=== PATIENT | female | born 1995 | race Two or more races ===

== ENCOUNTER 2017-01-14 08:28 | Emergency (ER) | payer BC ==
[2017-01-14 09:01] LABS: INFLUENZA A NEG (NEG); INFLUENZA B NEG (NEG)
== END 2017-01-14 09:50 | disposition home or self-care (01) ==
LOC: CED 08:28
PROVIDERS: Physician Assistant Medical
DX: J06.9 Acute upper respiratory infection, unspecified (principal)
CPT/HCPCS: 87804; 99283